=== PATIENT | female | born 1950 | race Two or more races ===

== ENCOUNTER 2024-08-14 13:52 | Emergency (ER) | payer OTHER ==
[~2024-08-14] VITALS: Ht 167.6 cm; Wt 64.3 kg
[~2024-08-14 13:52] MED LIST: ATOR20TA50 PO; BUPR-346 PO; LEVO50TA7 PO; MIRT-93 PO
--- NOTE | 2024-08-14 14:29 | ED.PDOC ---
History of Present Illness HPI Comments A 74 YEAR OLD FEMALE PRESENTS TO THE ED WITH COMPLAINT OF MEDICATION REFILL. PATIENT STATES SHE RECENTLY RAN OUT OF HER DEPRESSION MEDICATIONS AND WOULD LIKE A REFILL OF HER MEDICATIONS. PATIENT REPORTS SHE TAKES LUNESTA 2 MG AND VIIBRYD 40 MG TO MANAGE HER DEPRESSION. PATIENT DENIES FEVER, CHILLS, SHORTNESS OF BREATH, CHEST PAIN, ABDOMINAL PAIN, NAUSEA, VOMITING, HEADACHE, OR OTHER COMPLAINTS. NO OTHER SYMPTOMS OR MODIFYING FACTORS AT THIS TIME. PATIENT IS ALERT, ORIENTED X 4, AND HAS STEADY GAIT. Chief Complaint: Anxiety Time Seen by MD: 13:54 Reviewed Notes: Nurses Notes, Medications, Allergies Information Source: Patient Mode of Arrival: Ambulatory Severity: None Timing: Days Duration: Since onset, Days Prehospital treatment: None Medication Refill: Ran out of Medication, For: Psychiatric, For: Other (MEDICATION REFILL FOR DEPRESSION MEDICATIONS) Past Medical History PAST MEDICAL HISTORY: Anxiety, Depression Surgical History: Denies all surgeries [employer] RE[employer] WORKER History: Unobtainable Family History Family History: Reviewed,noncontributory to illness Social History Smoker: Non-Smoker Alcohol: Denies ETOH Use Drugs: Denies Drug Use Lives In: Home Constitutional: denies: chills, diaphoresis, fatigue, fever, malaise, sweats, weakness, others EENTM: denies: blurred vision, double vision, ear bleeding, ear discharge, ear drainage, ear pain, ear ringing, eye pain, eye redness, hearing loss, mouth pain, mouth swelling, nasal discharge, nose bleeding, nose congestion, nose pain, photophobia, tearing, throat pain, throat swelling, voice changes, others Respiratory: denies: cough, hemoptysis, orthopnea, SOB at rest, shortness of breath, SOB with excertion, stridor, wheezing, others Cardiovascular: denies: chest pain, dizzy spells, diaphoresis, Dyspnea on exertion, edema, irregular heart beat, left arm pain, lightheadedness, palpitations, PND, syncope, others Gastrointestinal: denies: abdomen distended, abdominal pain, blood streaked bowels, constipated, diarrhea, dysphagia, difficulty swallowing, hematemesis, melena, nausea, poor appetite, poor fluid intake, rectal bleeding, rectal pain, vomiting, others Genitourinary: denies: abnormal vagina bleeding, burning, dyspareunia, dysuria, flank pain, frequency, hematuria, incontinence, pain, , vagina discharge, urgency, others Neurological: denies: dizziness, fainting, headache, left sided numbness, left sided weakness, numbness, paresthesia, pre-existing deficit, right sided numbness, right sided weakness, seizure, speech problems, tingling, tremors, weakness, others Musculoskeletal: denies: back pain, gout, joint pain, joint swelling, muscle pain, muscle stiffness, neck pain, others Integumetry: denies: bruises, change in color, change in hair/nails, dryness, laceration, lesions, lumps, rash, wounds, others Allergic/Immunocompromised: denies: Difficulty Healing, Frequent Infections, Hives, Itching, others Hematologic/Lymphatic: denies: anemia, blood clots, easy bleeding, easy bruising, swollen glands, others Endocrine: denies: excessive hunger, excessive sweating, excessive thirst, excessive urination, flushing, intolerance to cold, intolerance to heat, unexplained weight gain, unexplained weight loss, others Psychiatric: reports: anxiety; denies: bipolar disorder, depression, hopeless, panic disorder, schizophrenia, sleepless, suicidal, others All Other Systems: Reviewed and Negative Physical Exam General Appearance: No Apparent Distress, Normal HEENT: Normal ENT Inspection, PERRL/EOMI, Pharynx Normal, TMs Normal Neck: Full Range of Motion, Non-Tender, Normal, Normal Inspection Respiratory: Chest Non-Tender, Lungs Clear, No Accessory Muscle Use, No Respiratory Distress, Normal Breath Sounds Cardiovascular: No Edema, No JVD, No Murmur, No Gallop, Normal Peripheral Pulses, Regular Rate/Rhythm Breast Exam: Deferred Gastrointestinal: No Organomegaly, Non Tender, No Pulsatile Mass, Normal Bowel Sounds, Soft Genitalia: Deferred Pelvic: Deferred Rectal: Deferred Extremities: No calf tenderness, Normal capillary refill, Normal inspection, Normal range of motion, Non-tender, No pedal edema Musculoskeletal : Apperance: Normal Neurologic: Alert, clinical nursing intern II-XII nml as Tested, No Motor Deficits, Normal Affect, Normal Mood, No Sensory Deficits Cerebellar Function: Normal Reflexes: Normal Skin: Dry, Normal Color, Warm Peripheral Pulses: 2+ carotid (R), 2+ carotid (L) Lymphatic: No Adenopathy Was a procedure done? Was a procedure done?: No Differential Dx Considerations may include: MEDICATION REFILL, HISTORY OF ANXIETY AND DEPRESSION X-Ray, Labs, Meds, VS Vital Signs Date Time Temp Pulse Resp B/P (MAP) Pulse Ox O2 Delivery O2 Flow Rate FiO2 08/14/24 14:02 98.9 74 18 131/46 (74) 95 X-Ray, Labs, Meds, VS Comment EXTERNAL NOTES: NONE LABS ORDERED: NONE REVIEWED AND INTERPRETED RESULTS: NONE INDEPENDENT HISTORIANS: PATIENT'S CAREGIVER PATIENT'S CASE AND RESULTS HAVE BEEN DISCUSSED WITH THE ED ATTENDING PHYSICIAN AND THEY AGREE WITH MY PLAN OF CARE. I HAVE INSTRUCTED THE PATIENT TO FOLLOW UP WITH HER PCP IN 1-2 DAYS. THE PATIENT FULLY UNDERSTANDS THEIR RESULTS AND ARE AWARE THEY NEED TO FOLLOW UP WITH THEIR PCP FOR FURTHER EVALUATION IF THEIR SYMPTOMS PERSIST. Time of 1ST Reevaluation: 15:30 Reevaluation 1ST: Improved Patient Education/Counseling: Diagnosis, Treatment, Need For Follow Up Family Education/Counseling: Diagnosis, Treatment, Need For Follow Up Medical Screening: No EMC Exist At This Time Departure 1 Departure Time of Disposition: 15:40 Impression: Primary Impression: Encounter for medication refill Additional Impression: History of anxiety Disposition: 01 HOME / SELF CARE / HOMELESS Condition: Stable Additional Instructions: FOLLOW-UP WITH PCP IN 1 TO 2 DAYS. TAKE MEDICATIONS PRESCRIBED. RETURN TO ED FOR ANY NEW OR WORSENING SYMPTOMS. e-Prescriptions Vilazodone Hcl (VIIBRYD) 40 Mg Tab 1 TAB PO DAILY, #15 TAB Prov: DEO FLANAGAN 08/14/24 Eszopiclone (Eszopiclone) 2 Mg Tab 2 MG PO QHSP PRN, #15 TAB Prov: DEO FLANAGAN 08/14/24 Discharged With: Self, Relative, Resort Manager Critical Care Note Critical Care Time?: No Stability Stability form required: No I personally scribed for DEO FLANAGAN ([email or web address]) on 08/14/24 at 14:29. Electronically submitted by Farhad Davis ([email or web address]). I personally scribed for DEO FLANAGAN ([email or web address]) on 08/14/24 at 15:18. Electronically submitted by Farhad Davis ([email or web address]). DEO FLANAGAN Aug 14, 2024 14:29
[2024-08-14] MEDS ORDERED: VILA40TA PO (15:34)
[2024-08-14] MEDS ORDERED: ESZO1TAB PO (15:34)
[2024-08-14 15:37] VITALS: BP 131/46; PULSE 74; RESP 18; TEMP 98.9; O2SAT 95
== END 2024-08-14 15:49 | disposition home or self-care (01) ==
LOC: ER 13:52 → MERGE 13:52 → ER 15:47
DX: Z76.0 Encounter for issue of repeat prescription (principal); F41.9 Anxiety disorder, unspecified; F32.A Depression, unspecified; Z91.148 Patient's other noncompliance with medication regimen for other reason